=== PATIENT | female | born 1975 | race African-American/Black ===

== ENCOUNTER 2022-08-30 13:06 | Emergency (ER) | payer OTHER ==
[~2022-08-30] VITALS: Ht 154.9 cm; Wt 81.2 kg
[~2022-08-30 13:06] MED LIST: DOLOGEN CAPLET1 TAB PO; LEVSIN/SL0.125 MG PO; PREVACID30 MG PO; TIGAN300 MG PO; TOPROL XL200 MG PO; TYLENOL EXTRA500 MG PO
[2022-08-30] MEDS ORDERED: METOPROLOL SUC200 MG PO (13:22)
== END 2022-08-30 16:41 | disposition home or self-care (01) ==
LOC: ER 13:06
DX: M54.9 Dorsalgia, unspecified (principal); Z88.6 Allergy status to analgesic agent